=== PATIENT | female | born 1980 | race Caucasian/White ===

== ENCOUNTER 2019-06-25 11:15 | Outpatient (CLI) | payer OTHER | END 2019-06-25 11:16 | disposition home or self-care (01) | LOC: CTENTCT 11:15 | PROVIDERS: ATTEND Specialist | DX: J32.9 Chronic sinusitis, unspecified (principal); R51 Headache | CPT/HCPCS: 70486 ==

== ENCOUNTER 2020-12-14 10:30 | Outpatient (CLI) | payer BC | END 2020-12-14 10:31 | disposition home or self-care (01) | LOC: RAD-FRANK 10:30 | PROVIDERS: ATTEND Nurse Practitioner Family | DX: R09.1 Pleurisy (principal) | CPT/HCPCS: 71046 ==